=== PATIENT | male | born 1955 | race Caucasian/White ===

== ENCOUNTER → 2018-05-08 | Outpatient (CLI) | payer OTHER | LOC: M.RAD 10:47 | DX: I51.7 Cardiomegaly (principal); R50.9 Fever, unspecified ==

== ENCOUNTER 2019-10-07 20:43 | Inpatient (IN) | payer OTHER ==
[~2019-10-07] VITALS: Ht 182.9 cm; Wt 115.2 kg
[2019-10-07 20:54] VITALS: BP 127/74
[2019-10-07] MEDS ORDERED: ZESTRIL40 MG PO (21:00)
[2019-10-07] MEDS ORDERED: CHLORTHALIDONE25 MG PO (21:00)
[2019-10-07] MEDS ORDERED: CARVEDILOL12.5 MG PO (21:01)
[2019-10-07] MEDS ORDERED: LIPITOR 20 MG T20 M1 PO (21:01)
[2019-10-07] MEDS ORDERED: ADULT ASPIRIN R81 MG PO (21:01)
[2019-10-07] MEDS ORDERED: PROBIOTIC1 EAC7 PO (21:02)
[2019-10-07 21:41] LABS: ABSOLUTE BASOPHILS 0.1 thou/uL (0.0-0.2); ABSOLUTE EOSINOPHILS 0.3 thou/uL (0.0-0.7); ABSOLUTE LYMPHOCYTES 1.7 thou/uL (0.8-5.3); ABSOLUTE MONOCYTES 1.1 thou/uL (0.0-1.2); ABSOLUTE NEUTROPHILS 7.7 thou/uL (1.6-8.1); BASOPHILS 0.8 %; EOSINOPHILS 2.8 %; HEMATOCRIT 44.9 % (42.0-52.0); HEMOGLOBIN 15.9 gm/dL (14.0-18.0); MCH 32.1 pg (26.0-34.0); MCHC 35.4 g/dL (28.0-37.0); MCV 90.6 fL (80.0-100.0); MONOCYTES 10.3 %; MPV 7.2 fl. (7.2-11.1); NUCLEATED RBCS 0 /100WBC; PLATELET COUNT* 274 thou/uL (150-400); POLYS 70.1 %; RBC 4.96 mil/uL (4.50-6.00); RDW-CV 13.7 % (10.5-14.5); WBC 10.9 thou/uL (4.0-11.0)
[2019-10-07 21:50] LABS: INR 1.1; PROTIME 10.9 Seconds (9.20-11.50)
[2019-10-07 21:56] LABS: CALCIUM 9.2 mg/dL (8.5-10.1); CREATININE 1.3 mg/dL (0.6-1.3); POTASSIUM 3.4 mmol/L (3.5-5.1)
[2019-10-07 22:00] LABS: ALBUMIN 4.3 g/dL (3.4-5.0); MAGNESIUM 2.1 mg/dL (1.8-2.4); TOTAL BILIRUBIN 0.5 mg/dL (<0.1-1.0)
[2019-10-08 00:26] VITALS: BP 131/67
[2019-10-08 01:34] LABS: URINE BILIRUBIN NEGATIVE (Negative); URINE BLOOD NEGATIVE (Negative); URINE CLARITY CLEAR; URINE COLOR YELLOW; URINE GLUCOSE-RANDOM NEGATIVE (Negative); URINE KETONES NEGATIVE (Negative); URINE LEUKOCYTES-REFLEX NEGATIVE (Negative); URINE NITRITE-REFLEX NEGATIVE (Negative); URINE PROTEIN NEGATIVE (Negative); URINE UROBILINOGEN 0.2 E.U./dl (0.2-1.0)
--- NOTE | 2019-10-08 02:49 | NUR ---
PT ALERT ORIENTED. VOIDING PER URINAL AT BS. OUT OF ROLLING IV POLES. PTS IV PUMP IS ON TABLE. CARDIZEM QTT AT 10MG/HR. IV DC PER PT AND RESTARTED IN L HAND. O2 AT 2 LITERS NC. NPO FOR CARDIOLOGY CONSULT. WCTM
[2019-10-08 04:00] VITALS: BP 110/65
--- NOTE | 2019-10-08 06:49 | NUR ---
PT PLACED ON HEPARIN QTT FOR ANTICOAGULATION. PT CONVERTED TO SB. CARDIZEM QTT TURNED DOWN TO 2.5 MG/HR. REMAINS NPO FOR CARDIOLOGY CONSULT.
--- NOTE | 2019-10-08 09:10 | EKG ---
[place] [address] ELECTROCARDIOGRAM REPORT Name: RAHEEL TRISTAN Room: [address] M.R.#: [id number] Admission: 10/07/19 Attend Phys: Anthony paz Sa Discharge: Date of : 59 Date of Service: 10/07/192047 Report #: [id number] THIS REPORT FOR: //name// [facility] ED Test Date: 2019-10-07 Test Time: 20:48:50 Pat Name: RAHEEL TRISTAN Department: Room: [facility] Gender: M Registered Nurse Bone Marrow Transplant: LAKIA : 1955 Requested By: Freida Aponte Order Number: [id number] MD: Raheel Amaya Measurements Intervals [place] Rate: 118 P: [place]: QRS: 8 QRSD: 98 T: 12 QT: 297 QTc: 417 Interpretive Statements Atrial fibrillation Borderline repolarization abnormality No previous ECG available for comparison Electronically Signed On 10-08-2019 9:10:02 CDT by Raheel Amaya [email or web address] <ELECTRONICALLY SIGNED> By: Raheel Amaya MD, [facility] 06/909 47 47 Raheel Amaya MD, [facility] /EPI
[2019-10-08 09:29] VITALS: BP 143/75
[2019-10-08 12:31] VITALS: BP 106/67
--- NOTE | 2019-10-08 13:02 | 2DMMODE ---
[place] [address] 2 D/M-MODE ECHOCARDIOGRAM Name: RAHEEL TRISTAN Room: [address] Eyad Noguera#: [id number] Admission: 10/07/19 Attend Phys: Anthony paz Sa Discharge: Date of : 59 Date of Service: 10/08/19 1301 Report #: [id number] THIS REPORT FOR: cc: Wang Lloyd,Wang Eubanks,Raheel Chase MD [facility] ~ APPROVED REPORT Study performed: 10/08/2019 11:35:31 EXAM: Comprehensive 2D, Doppler, and color-flow Echocardiogram Patient Location: In-Patient BSA: 2.37 HR: 56 bpm BP: 143/75 mmHg Other Information Study Quality: Fair Indications Atrial Fibrillation 2D Dimensions IVSd: 12.05 (7-11mm) LVOT Diam: 21.46 (18-24mm) LVDd: 45.00 mm PWd: 11.67 (7-11mm) Ascending Ao: 36.28 (22-36mm) LVDs: 34.41 (25-40mm) Aortic Root: 32.23 mm Volumes Left Atrial Volume (Systole) LA ESV Index: 28.00 mL/m2 Aortic Valve AoV Peak Thad.: 1.12 m/s AO Peak Gr.: 5.06 mmHg LVOT Max P.32 mmHg AO Mean Gr.: 3.03 mmHg LVOT Mean P.66 mmHg LVOT Max V: 0.91 m/s AO V2 VTI: 25.42 cm LVOT Mean V: 0.60 m/s MARY (VTI): 2.57 cm2 LVOT V1 VTI: 18.04 cm Mitral Valve E/A Ratio: 1.18 [place] [address] 2 D/M-MODE ECHOCARDIOGRAM Name: RAHEEL TRISTAN Room: [address] M.R.#: [id number] Admission: 10/07/19 Attend Phys: Anthony paz Sa Discharge: Date of : 59 Date of Service: 10/08/19 1301 Report #: [id number] MV Decel. Time: 205.12 ms MV E Max Thad.: 0.54 m/s MV PHT: 59.49 ms MVA (PHT): 3.70 cm2 TDI E/Lateral E': 5.40 E/Medial E': 6.00 Medial E' Thad.: 0.09 m/s Lateral E' Thad.: 0.10 m/s Pulmonary Valve PV Peak Thad.: 0.84 m/s PV Peak Gr.: 2.81 mmHg Tricuspid Valve RAP Estimate: 20.00 mmHg TR Peak Gr.: 26.60 mmHg RVSP: 46.60 mmHg PA Pressure: 46.60 mmHg Left Ventricle The left ventricle is normal size. There is normal LV segmental wall motion. Mild concentric left ventricular hypertrophy. Left ventricular systolic function is borderline. LVEF is 45-50%. Right Ventricle Right ventricle is dilated. The right ventricular systolic function is normal. Atria The left atrium size is normal. Atrial septal aneurysm is present. Right atrium is dilated. Aortic Valve The aortic valve is normal in structure. No aortic regurgitation is present. There is no aortic valvular stenosis. Mitral Valve The mitral valve is normal in structure. There is no mitral valve regurgitation noted. No evidence of mitral valve stenosis. Tricuspid Valve The tricuspid valve is normal in structure. Trace tricuspid regurgitation. Pulmonic Valve Pulmonic valve is not well visualized. There is no pulmonic [place] [address] 2 D/M-MODE ECHOCARDIOGRAM Name: RAHEEL TRISTAN Room: [address]#: [id number] Admission: 10/07/19 Attend Phys: Anthony paz Sa Discharge: Date of : 59 Date of Service: 10/08/19 1301 Report #: [id number] Great Vessels The aortic root is normal in size. IVC is dilated. Pericardium There is no pericardial effusion. <Conclusion> LVEF is 45-50%. Mild concentric left ventricular hypertrophy. <ELECTRONICALLY SIGNED> By: Raheel Amaya MD, [facility] 10/08/19 1301 130 130 Raheel Amaya MD, FAC /INF
--- NOTE | 2019-10-08 13:48 | NUR ---
Cardiac Rehab education on Atrila Fib completed with receptive patient and using the Atrial Fib handout. Questions answered to patient and 's satisfaction.
--- NOTE | 2019-10-08 14:28 | NUR ---
PT IN BED T/O DAY DENIES ANY PAIN IV HEPARIN AND CARDIZEM GTT DC'D AROUND 10AM PO SOTALOL TO CONTINUE SINUS COLIN ON THE MONITOR 55-60BPM 2L NC AT 97-98% DOES NOT WEAR O2 AT HOME PLAN FOR CARDIO TO MONITOR PT THE NEXT COUPLE OF DAYS TO STAY IN RHYTHM ACHS STARTED D/T PREDIABETIC BEFORE AND BLOOD SUGAR WAS ELEVATED DURING ADMIT CALL LIGHT IN REACH
--- NOTE | 2019-10-08 16:27 | NUR ---
CARDIOLOGY SAW PT.TODAY IN CONSULT. PUT ON SOTALOL AND ELIQUIS BY CARDIOLOGY. NO USE OF DME AT HOME AND IS USUALLY INDEPENDENT. CM WILL FOLLOW.
[2019-10-08 20:00] VITALS: BP 115/74
[2019-10-09] VITALS: BP 130/79
[2019-10-09 02:07] LABS: GLYCOHEMOGLOBIN (HGB A1C) 6.2 % (4.8-5.6)
[2019-10-09 04:40] LABS: HEMATOCRIT 42.8 % (42.0-52.0); HEMOGLOBIN 15.1 gm/dL (14.0-18.0); MCHC 35.2 g/dL (28.0-37.0); MCV 91.1 fL (80.0-100.0); MPV 7.1 fl. (7.2-11.1); RBC 4.7 mil/uL (4.50-6.00); RDW-CV 13.4 % (10.5-14.5)
[2019-10-09 04:52] LABS: CALCIUM 8.9 mg/dL (8.5-10.1); CREATININE 1.1 mg/dL (0.6-1.3); MAGNESIUM 2.1 mg/dL (1.8-2.4); POTASSIUM 3.8 mmol/L (3.5-5.1)
[2019-10-09 07:53] VITALS: BP 130/77
--- NOTE | 2019-10-09 10:26 | EKG ---
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
[2019-10-09 12:00] VITALS: BP 121/80
--- NOTE | 2019-10-09 12:06 | NUR ---
PT IN BED T/O MORNING HAD BM BLOOD SUGAR WNL HGB A1C WAS 6.2 THOUGH PT DENIES PAIN STILL SINUS COLIN ON THE MONITOR 55-60S SOTALOL CONTINUES PT IS DROWSY/SLEEPY BUT NO OTHER SIDE EFFECTS NOTED ALERT AND ORIENTED UP AD SYLVAIN CALL LIGHT IN REACH
[2019-10-09 15:49] VITALS: BP 116/64
--- NOTE | 2019-10-09 16:58 | CON ---
[address] [address] CONSULTATION Name: AZALEARAHEEL RIAN Room: [address] ADM IN M.R.#: [id number] Admission: 10/08/19 Attend Phys: Anthony Thompson Discharge: Date of : 59 Report #: [id number] THIS REPORT FOR: //name// cc: Wang Lloyd Vincent R. DO THIS REPORT FOR: //name// CC: Anthony Kinsey DATE OF SERVICE: 10/08/2019 CARDIOLOGY CONSULTATION HISTORY OF PRESENT ILLNESS: The patient is a 64-year-old white male who I was asked to see in the hospital today after he had an episode of atrial fibrillation. The patient has an extensive and complicated past medical history. Unfortunately, none of his old records are available here at [facility]. He notes that 10 years ago, he was having episodes of shortness of breath and diaphoresis. He was found to have evidence of a cardiomyopathy. He apparently underwent a cardiac catheterization at [facility] and told there was no significant coronary artery disease. At one time, his ejection fraction was only 32%. He denied ever being approached for transplant or need for ICD. He has been followed by Cardiology since that time. He does note a year ago, he saw his systems spec at [facility] and his ejection fraction was up to 69%. He stays very active. Denies any recent shortness of breath, edema, orthopnea, fever, cough, chest tightness. He does note few months ago, he had an episode where his heart was beating irregular lasted about a few minutes, resolved. He then notes that last night he was at home, he felt his heart beating irregular, felt a little lightheaded. He was brought to the Emergency Room at [facility] by private vehicle. He was found to be in atrial fibrillation. He was started on IV diltiazem. He converted to sinus rhythm. I was asked to see him for further evaluation and treatment. He denies recent bleeding episodes. PAST MEDICAL HISTORY: He has had appendectomy, knee surgery. He has a history of hypertension, hyperlipidemia, glucose intolerance. MEDICATIONS: Include carvedilol, lisinopril, Lipitor, aspirin and uses inhaler for asthma. ALLERGIES: HE HAS AN ALLERGY TO PENICILLIN. FAMILY HISTORY: His father had a heart attack. SOCIAL HISTORY: He is . He and his live in [place], [place] [address] CONSULTATION Name: RAHEEL TRISTAN Room: [address] IN 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 He does not exercise on a regular basis. No tobacco abuse. He used to drink up to a fifth of whiskey a day. He did not go through AA, but quit drinking years ago when he was diagnosed cardiomyopathy, now has 1 drink of alcohol a day. Drinks coffee every day. He has a history of smoking methamphetamines in the past, no longer abuses drugs, denies IV drug abuse. REVIEW OF SYSTEMS: No history of stroke. He does snore at night. No history of liver disease, kidney disease, cancer, psychiatric illness, chronic skin condition. PHYSICAL EXAMINATION: GENERAL: Revealed a large male who is 5 feet 10 inches, 260 pounds, he used to weigh 275 pounds. HEENT: He is anicteric. Conjunctivae are pink. Mucous membranes moist. NECK: Veins nondistended. No carotid bruits. Neck supple. CHEST: Clear to auscultation. CARDIOVASCULAR: Regular rate and rhythm. ABDOMEN: Obese. EXTREMITIES: Had no edema. SKIN: Warm and dry. NEUROLOGIC: Nonfocal. DIAGNOSTIC DATA: His ECG last night when he arrived in the Emergency Room at 8:00, he was in atrial fibrillation with an increased ventricular response rate. Currently, he is in a sinus rhythm. His workup in the Emergency Room last night, he had a portable chest x-ray that showed normal heart size, clear lung [place]. LABORATORY WORK: Sodium 143, potassium 3.4, creatinine 1.3, glucose is 187. His liver function studies were normal. Troponin 0.06. BNP 126. TSH 5.7. His white blood cell count 10.9, hemoglobin 15.9. IMPRESSION AND RECOMMENDATIONS: 1. Paroxysmal atrial fibrillation. I would recommend switching from carvedilol to sotalol. I would continue anticoagulation because of his history of cardiomyopathy. At this time, I would recommend starting Eliquis 5 mg every 12 hours. 2. Previous history of cardiomyopathy. Appears to resolve. Recommend repeat echo. The patient is on a beta rene and GEORGE inhibitor. 3. Hyperlipidemia. The patient is on a statin drug. 4. Glucose intolerance. 5. History of alcohol abuse. 6. History of illicit drug use. [address] [address] CONSULTATION Name: RAHEEL TRISTAN Room: [address] IN M.R.#: [id number] Admission: 10/08/19 Attend Phys: Anthony rajan los Sparkman Discharge: Date of : 59 Report #: [id number] 7. Snoring at night. I would rule out sleep apnea. 8. Obesity. <ELECTRONICALLY SIGNED> By: Raheel Amaya MD, FACC 10/09/19 1658 1105 [id number] Amaya MD, FACC /nt
[2019-10-09 20:10] VITALS: BP 128/73
[2019-10-10] VITALS: BP 120/75
[2019-10-10 04:00] VITALS: BP 119/81
--- NOTE | 2019-10-10 05:04 | NUR ---
PT CARE ASSUMED AT 1930. SAT MAINTAINED IN RA. ALERT AND ORIENTED X4. DENIES PAIN AND SOB. CALL LIGHT WITHIN REACH AND BED IN LOW POSITION. HOURLY ROUNDING DONE FOR PT SAFETY.
[2019-10-10 08:00] VITALS: BP 141/83
--- NOTE | 2019-10-10 10:26 | EKG ---
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
[2019-10-10] MEDS ORDERED: GLUCOPHAGE500 MG PO (11:45)
[2019-10-10] MEDS ORDERED: ELIQUIS5 MG PO (11:45)
[2019-10-10] MEDS ORDERED: SORINE 80 MG TA80 M1 PO (11:45)
[2019-10-10] MEDS ORDERED: ACETAMINOPHEN650 M5 PO (12:44)
[2019-10-10 13:45] VITALS: BP 141/83
[2019-10-10 14:04] VITALS: BP 141/83
--- NOTE | 2019-10-10 15:07 | NUR ---
ASSUMED CARE OF PATIENT THIS AM AT 0730. PATIENT IS ALERT AND ORIENTED X 4. HE DENIES PAIN AND DISCOMFORT. PATIENT CONTINUES SR TO SBRADY THIS AM. DR SINGH IN THIS AM TO WRITE DISCHARGE ORDERS. FOLLOWED BY DR NIETO. MEDICATION SAMPLES GIVEN TO PATIENT BY CARDIOLOGY NURSE. PATIENT GIVEN DISCHARGE,FOLLOWUP INSTRUCTIONS, PRESCRIPTIONS AND CARENOTES. SALINE LOCK AND TELE MONITOR DISCONTINUED. PATIENT DISCHARGED TO HOME WITH SPOUSE.
== END 2019-10-10 16:40 | disposition home or self-care (01) | DRG 309 ==
LOC: M.ERS 20:43 → M.TBA-ER 22:18 → M.2W 22:18
PROVIDERS: Emergency Medicine; Internal Medicine; ADMIT Family Medicine; ATTEND Family Medicine
DX: I48.0 Paroxysmal atrial fibrillation (principal); D68.69 Other thrombophilia; I42.9 Cardiomyopathy, unspecified; I10 Essential (primary) hypertension; E78.5 Hyperlipidemia, unspecified; F10.11 Alcohol abuse, in remission; E11.9 Type 2 diabetes mellitus without complications; Z82.49 Family history of ischemic heart disease and other diseases of the circulatory system; Z79.899 Other long term (current) drug therapy; Z79.82 Long term (current) use of aspirin; Z88.0 Allergy status to penicillin; Z88.8 Allergy status to other drugs, medicaments and biological substances; Z90.89 Acquired absence of other organs

== ENCOUNTER 2020-09-13 14:13 | Observation (INO) | payer OTHER ==
[~2020-09-13] VITALS: Ht 185.4 cm; Wt 110.2 kg
--- NOTE | ~2020-09-13 | EKG ---
[place] [address] ELECTROCARDIOGRAM REPORT Name: AZALEARAHEEL Room: 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
[~2020-09-13 14:13] MED LIST: ACETAMINOPHEN650 M5 PO; ADULT ASPIRIN R81 MG PO; CARVEDILOL12.5 MG PO; CHLORTHALIDONE25 MG PO; ELIQUIS5 MG PO; GLUCOPHAGE500 MG PO; LIPITOR 20 MG T20 M1 PO; PROBIOTIC1 EAC7 PO; SORINE 80 MG TA80 M1 PO; ZESTRIL40 MG PO
[2020-09-13 14:20] VITALS: BP 176/133
[2020-09-13] MEDS ORDERED: NORVASC5 MG PO (14:44)
[2020-09-13 14:47] LABS: ABSOLUTE BASOPHILS 0.1 thou/uL (0.0-0.2); ABSOLUTE EOSINOPHILS 0.3 thou/uL (0.0-0.7); ABSOLUTE LYMPHOCYTES 1.7 thou/uL (0.8-5.3); ABSOLUTE MONOCYTES 1.1 thou/uL (0.0-1.2); ABSOLUTE NEUTROPHILS 8.1 thou/uL (1.6-8.1); BASOPHILS 0.8 %; EOSINOPHILS 2.5 %; HEMATOCRIT 44.1 % (42.0-52.0); HEMOGLOBIN 15.3 gm/dL (14.0-18.0); LYMPHOCYTES 15.4 %; MCH 31.2 pg (26.0-34.0); MCHC 34.7 g/dL (28.0-37.0); MCV 90.2 fL (80.0-100.0); MONOCYTES 9.8 %; MPV 6.7 fl. (7.2-11.1); NUCLEATED RBCS 0 /100WBC; PLATELET COUNT* 287 thou/uL (150-400); POLYS 71.5 %; RBC 4.89 mil/uL (4.50-6.00); RDW-CV 13.4 % (10.5-14.5); WBC 11.3 thou/uL (4.0-11.0)
[2020-09-13 14:58] LABS: CALCIUM 8.9 mg/dL (8.5-10.1); POTASSIUM 3.6 mmol/L (3.5-5.1)
[2020-09-13 15:09] LABS: ALBUMIN 4.3 g/dL (3.4-5.0); MAGNESIUM 2.1 mg/dL (1.8-2.4); TOTAL BILIRUBIN 0.5 mg/dL (<0.1-1.0); TOTAL PROTEIN 8.1 g/dL (6.4-8.2)
[2020-09-13 20:00] VITALS: BP 127/71
[2020-09-13 20:01] VITALS: BP 105/60
[2020-09-13 23:43] VITALS: BP 132/66
[2020-09-14 04:59] VITALS: BP 120/69
[2020-09-14 05:02] LABS: CALCIUM 8.7 mg/dL (8.5-10.1); CREATININE 1.1 mg/dL (0.6-1.3); POTASSIUM 3.4 mmol/L (3.5-5.1)
[2020-09-14 05:08] LABS: HEMOGLOBIN 15.3 gm/dL (14.0-18.0); MCH 31.1 pg (26.0-34.0); MCHC 34.8 g/dL (28.0-37.0); MCV 89.4 fL (80.0-100.0); MPV 7.1 fl. (7.2-11.1); RBC 4.92 mil/uL (4.50-6.00); RDW-CV 13.2 % (10.5-14.5); WBC 9.5 thou/uL (4.0-11.0)
--- NOTE | 2020-09-14 07:25 | NUR ---
CHANGE OF SHIFT BEDSIDE REPORT GIVEN PATIENT SEEN AT BEDSIDE, IN BED RESTING ASSUMED PATIENT CARE
[2020-09-14 08:00] VITALS: BP 116/67
[2020-09-14 12:04] VITALS: BP 121/72
--- NOTE | 2020-09-14 12:38 | EKG ---
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: : 1955 Requested By: Ruth Kiser Order Number: [id number] Reading MD: Bhupinder Jackson Measurements Intervals [place] Rate: 56 P: 21 [place]: 159 QRS: 14 QRSD: 95 T: 31 QT: 407 QTc: 393 Interpretive Statements Sinus rhythm Borderline T wave abnormalities Compared to ECG 09/13/2020 14:30:30 T-wave abnormality now present Atrial fibrillation no longer present ST (T wave) deviation no longer present Electronically Signed On 09-14-2020 12:38:43 CDT by Bhupinder Jackson [email or web address] <ELECTRONICALLY SIGNED> By: Bhupinder Jackson MD, [facility] 09/14/20 1238 0 0 Bhupinder Jackson MD, [facility] /EPI
--- NOTE | 2020-09-14 13:38 | NUR ---
Pt is A&O. Resides at home with . Independent. NO DME. No hx of HH or SNF. Goal is home at dc, cardiology. NO needs anticipated at dc.
[2020-09-14 17:26] VITALS: BP 140/85
[2020-09-14 20:00] VITALS: BP 133/81
[2020-09-15 00:26] VITALS: BP 137/74
[2020-09-15 02:06] LABS: GLYCOHEMOGLOBIN (HGB A1C) 6.3 % (4.8-5.6)
[2020-09-15 04:14] VITALS: BP 132/75
[2020-09-15 09:01] VITALS: BP 142/83
[2020-09-15] MEDS ORDERED: CARDIZEM CD 18180 M3 PO ×2 (09:18→20:35)
[2020-09-15 12:02] VITALS: BP 142/83
--- NOTE | 2020-09-15 14:50 | NUR ---
ASSUMED PT CARE AT 0730. PT IS A&OX4, COOPERATIVE AND FRIENDLY.PT DENIES ANY RESPIRATORY DISTRESS. PT IS UP AD SYLVAIN WITHOUT DIFFICULTY. NEW ORDERS TO DISCHARGE PT TO HOME. DISCHARGE INSTRUCTIONS REVIEWED WITH PT WHO VERBALIZES UNDERSTANDING. PT TO FOLLOW UP WITH CARDIOLOGY IN 1 WEEK AND REPORTS HE HAS MADE THAT APPOINTMENT WITH HIS PARASITOLOGIST AT [facility]. HEART MONITOR AND IV DC'D. PT TAKEN VIA WC BY NURSING STAFF TO EXIT WITH VIA CAR AT APPROX 1230.
== END 2020-09-15 12:30 | disposition home or self-care (01) ==
LOC: M.ERS 14:13 → M.2W 15:36 → M.TBA-ER 15:36 → M.2W 20:04
PROVIDERS: Emergency Medicine Emergency Medical Services; Family Medicine; ADMIT Internal Medicine; ATTEND Internal Medicine
DX: I48.20 Chronic atrial fibrillation, unspecified (principal); Z20.822 Contact with and (suspected) exposure to COVID-19; I10 Essential (primary) hypertension; E78.5 Hyperlipidemia, unspecified; E11.9 Type 2 diabetes mellitus without complications; I42.9 Cardiomyopathy, unspecified; Z88.0 Allergy status to penicillin; Z79.899 Other long term (current) drug therapy; Z79.82 Long term (current) use of aspirin

== ENCOUNTER → 2021-01-28 | Outpatient (CLI) | payer OTHER ==
[~2021-01-28] MED LIST changes: +CARDIZEM CD 18180 M3 PO; +NORVASC5 MG PO
== END ==
LOC: M.ULTRA 08:25
PROVIDERS: ATTEND Family Medicine
DX: I70.0 Atherosclerosis of aorta (principal)

== ENCOUNTER → 2021-04-01 | Outpatient (CLI) | payer OTHER | LOC: M.LAB 12:30 | PROVIDERS: ATTEND Internal Medicine Gastroenterology | DX: Z01.812 Encounter for preprocedural laboratory examination (principal); Z20.822 Contact with and (suspected) exposure to COVID-19 ==

== ENCOUNTER → 2021-04-04 | Outpatient (CLI) | payer OTHER | LOC: M.LAB 05:54 | PROVIDERS: ATTEND Anesthesiology | DX: E87.6 Hypokalemia (principal) ==

== ENCOUNTER → 2021-05-06 | Outpatient (CLI) | payer OTHER ==
[2021-05-06 11:40] LABS: CREATININE 1.1 mg/dL (0.6-1.3)
== END ==
LOC: M.LAB 11:10 → M.CT 13:00
PROVIDERS: ATTEND Family Medicine
DX: K42.9 Umbilical hernia without obstruction or gangrene (principal); K40.90 Unilateral inguinal hernia, without obstruction or gangrene, not specified as recurrent; K57.90 Diverticulosis of intestine, part unspecified, without perforation or abscess without bleeding; I70.8 Atherosclerosis of other arteries; M47.816 Spondylosis without myelopathy or radiculopathy, lumbar region; N28.1 Cyst of kidney, acquired; E27.8 Other specified disorders of adrenal gland

== ENCOUNTER → 2021-05-23 | Outpatient (CLI) | payer OTHER ==
[2021-05-23] VITALS (13 sets, daily range): BP systolic 117–147; BP diastolic 67–81
[~2021-05-23] VITALS: Ht 182.9 cm; Wt 113.4 kg
[~2021-05-23] MED LIST changes: +NITROSTAT0.4 M1 SUBLING; +VENTOLIN HFA 1818 GM INH; +ZOLOFT25 MG PO
[2021-05-23 09:09] LABS: HEMATOCRIT 40.2 % (42.0-52.0); HEMOGLOBIN 13.9 gm/dL (14.0-18.0); MCH 30.9 pg (26.0-34.0); MCHC 34.6 g/dL (28.0-37.0); MCV 89.2 fL (80.0-100.0); MPV 7.3 fl. (7.2-11.1); RBC 4.51 mil/uL (4.50-6.00); RDW-CV 13.5 % (10.5-14.5); WBC 9.4 thou/uL (4.0-11.0)
[2021-05-23 09:10] LABS: APTT 25.8 Seconds (25.0-31.3); PROTIME 10.6 Seconds (9.20-11.50)
[2021-05-23 09:13] LABS: ALBUMIN 3.9 g/dL (3.4-5.0); CALCIUM 8.8 mg/dL (8.5-10.1); CREATININE 1.1 mg/dL (0.6-1.3); POTASSIUM 3.2 mmol/L (3.5-5.1); TOTAL BILIRUBIN 0.4 mg/dL (<0.1-1.0); TOTAL PROTEIN 7.4 g/dL (6.4-8.2)
[2021-05-24 07:08] LABS: GLYCOHEMOGLOBIN (HGB A1C) 6.7 % (4.8-5.6)
--- NOTE | 2021-05-25 14:07 | PATH ---
[address] [address] PATHOLOGY RPT PROCEDURE Name: RAHEEL JARRETT Room: [facility] O[facility] Noguera#: [id number] Admission: 05/23/21 Date of : 59 Discharge: Report #: [id number] Path Case #: [id number] [facility] Accession Number: [id number] . 01 Material submitted: . adrenal gland - L ADRENAL GLAND. Modifiers: left . 02 Diagnosis: Left adrenal gland, biopsy: - Adrenal cortical neoplasm. See comment. . (DAYRON:yonas; 05/25/2021) [facility] 05/25/2021 1017 Local . 02 Comment: All of the tissue cores show similar findings of adrenal cortical tissue without necrosis, atypia or significant mitotic activity seen. Several of the cores have scant fibrous tissue at one end suggesting a capsule. Properly-controlled reticulin stain shows consistent circumscription of aggregates of cells. Properly-controlled immunohistochemical studies performed on A2 show the following results, supporting an adrenal cortical neoplasm: . PAX-8: Negative Inhibin: Weak positive CD10: Negative Calretinin: Positive . Features to indicate malignancy are not seen; however, to definitively exclude this possibility, the entire neoplasm needs should be examined. . Reviewed with Dr. Korin Bach on 05/25/2021 who agrees with the diagnosis. . (DAYRON:mmnicolette; 05/25/2021) . 02 Electronically signed: . Javier Bright MD, Pathologist NPI- [id number] . 01 Gross description: . The specimen is received in formalin, labeled "Raheel Jarrett, adrenal bx" and additionally labeled on the requisition as, "left adrenal gland". Received are 3 needle cores of gold-yellow tissue ranging in length from 0.9 to 1.3 cm by 0.1 cm in diameter. The specimen is submitted entirely in A1-A3. ([facility]; 05/23/2021) NRI/NRI 05/25/[address] [place] [address] PATHOLOGY RPT PROCEDURE Name: RAHEEL JARRETT Room: [facility] Chuckie#: [id number] Admission: 05/23/21 Date of : 59 Discharge: Report #: [id number] Path Case #: [id number] . 02 Pathologist provided ICD-10: D35.00 . 02 CPT . 283143, B73071, J71900, 924270 Specimen Comment: A courtesy copy of this report has been sent to [phone] Specimen Comment: [phone] Specimen Comment: Report sent to / DR MAHER Performed at: [address], [place], [place] [address] MD Osvaldo Garcia MD Phone: [phone] Performed at: [facility] [address], [place], [place] [id number] MD Javier Bright MD Phone: [phone]
== END | disposition home or self-care (01) ==
LOC: M.LAB 07:29 → M.CT 10:00
PROVIDERS: Radiology Diagnostic Radiology; ATTEND Family Medicine
DX: D35.00 Benign neoplasm of unspecified adrenal gland (principal); E11.9 Type 2 diabetes mellitus without complications; I42.9 Cardiomyopathy, unspecified; I48.91 Unspecified atrial fibrillation; Z98.890 Other specified postprocedural states; Z79.899 Other long term (current) drug therapy; Z20.822 Contact with and (suspected) exposure to COVID-19; Z79.01 Long term (current) use of anticoagulants; Z88.0 Allergy status to penicillin